=== PATIENT | female | born 1995 | race American Indian/Alaskan Native ===

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

== ENCOUNTER 2017-03-12 22:47 | Inpatient (IN) | payer SELFPAY ==
[2017-03-13 00:17] LABS: Basophils % (Auto) 0.5 % (0.0-1.8); Eosinophils # (Auto) 0.1 K/mm3 (0.0-0.4); Eosinophils % (Auto) 1.2 % (0.0-4.3); Hematocrit 32.2 % (30.3-42.9); Hemoglobin 11.1 gm/dl (10.1-14.3); Lymphocytes # (Auto) 1.8 K/mm3 (1.2-5.4); Lymphocytes % (Auto) 21.8 % (13.4-35.0); Mean Corpuscular HGB Conc 34 % (30-34); Mean Corpuscular Hemoglobin 32 pg (28-32); Mean Corpuscular Volume 92 fl (79-97); Monocytes % (Auto) 11.6 % (0.0-7.3); Platelet Count 240 K/mm3 (140-440); Red Blood Count 3.52 M/mm3 (3.65-5.03); Red Cell Distribution Width 13.5 % (13.2-15.2)
[2017-03-13 00:29] LABS: BUN/Creatinine Ratio 7; Blood Urea Nitrogen 4 mg/dL (7-17); Calcium 8.9 mg/dL (8.4-10.2); Hemolysis Index 0
[2017-03-13 02:29] LABS: Bacteria,Urine 1+ /HPF (Negative); Bilirubin,Urine NEG (Negative); Blood,Urine NEG (Negative); Color,Urine Colorless (Yellow); Nitrite,Urine NEG (Negative); Protein,Urine <15 mg/dL mg/dL (Negative); RBC,Urine < 1.0 /HPF (0.0-6.0); Urobilinogen,Urine < 2.0 mg/dL (<2.0); WBC,Urine < 1.0 /HPF (0.0-6.0)
[2017-03-13] MEDS ORDERED: D50W (25GM) Syringe IV ONE ×3 (02:40→04:46)
--- NOTE | 2017-03-13 02:53 | Emergency Department Report ---
ED General Adult HPI - General Chief complaint: Hyperglycemia Stated complaint: HIGH BLOOD SUGAR Time Seen by Provider: 03/13/17 02:26 Source: patient Mode of arrival: Ambulatory Limitations: No Limitations - History of Present Illness Initial comments: Patient is 21 years old female with no significant past medical history. Patient presented with chief complaint hypoglycemia after patient received 40 units of regular insulin. Patient stated that she checked her blood sugar and found that it was 450, however her uncle use his insulin to help her. Patient stated that her last menstrual period was in August 2016. Patient denied any vaginal bleeding or abdominal pain. - Related Data Allergies Allergy/AdvReac Type Severity Reaction Status Date / Time No Known Allergies Allergy Unverified 07/16/16 13:32 ED Review of Systems ROS: Stated complaint: HIGH BLOOD SUGAR Other details as noted in HPI Comment: All other systems reviewed and negative Constitutional: denies: chills, fever Respiratory: denies: cough, orthopnea, shortness of breath, SOB with exertion Cardiovascular: denies: chest pain, palpitations, dyspnea on exertion Endocrine: increased thirst, increased urine Gastrointestinal: denies: abdominal pain, nausea, vomiting, diarrhea, constipation, hematemesis, melena, hematochezia Genitourinary: denies: hematuria Musculoskeletal: denies: back pain Neurological: denies: headache, weakness, numbness, paresthesias, confusion, abnormal gait ED Past Medical Hx - Past Medical History Previous Medical History?: No - Surgical History Past Surgical History?: No - Social History Smoking Status: Former Smoker Substance Use Type: Marijuana ED Physical Exam - General Limitations: No Limitations General appearance: alert, in no apparent distress - Head Head exam: Present: atraumatic, normocephalic, normal inspection - Eye Eye exam: Present: normal appearance, PERRL - ENT ENT exam: Present: normal exam, normal orophraynx, mucous membranes moist - Neck Neck exam: Present: normal inspection, full ROM. Absent: tenderness, meningismus - Respiratory Respiratory exam: Present: normal lung sounds bilaterally. Absent: respiratory distress, wheezes, rales, rhonchi, stridor, chest wall tenderness, accessory muscle use, decreased breath sounds, prolonged expiratory - Cardiovascular Cardiovascular Exam: Present: regular rate, normal rhythm, normal heart sounds - GI/Abdominal GI/Abdominal exam: Present: soft, normal bowel sounds, organomegaly (gravid uterus). Absent: distended, tenderness, guarding, rebound, rigid, mass, bruit, pulsatile mass - Extremities Exam Extremities exam: Present: normal inspection, full ROM, normal capillary refill. Absent: pedal edema, calf tenderness - Back Exam Back exam: Present: normal inspection, full ROM. Absent: tenderness, CVA tenderness (R), CVA tenderness (L), muscle spasm, paraspinal tenderness, vertebral tenderness - Neurological Exam Neurological exam: Present: alert, oriented X3, CN II-XII intact, normal gait, reflexes normal. Absent: motor sensory deficit - Skin Skin exam: Present: warm, intact, normal color. Absent: cyanosis, diaphoretic, erythema ED Course Vital Signs 03/12/17 03/13/17 03/13/17 23:11 02:15 02:30 Temperature 98.2 F Pulse Rate 85 Respiratory 18 18 Rate Blood Pressure 124/47 111/73 111/73 O2 Sat by Pulse 100 100 100 Oximetry 03/13/17 02:46 Temperature Pulse Rate Respiratory Rate Blood Pressure 112/68 O2 Sat by Pulse 100 Oximetry - Reevaluation(s) Reevaluation #1: 03/13/17 04:48 Discussed with Aminata employment recruiter who is Dr. Zelaya, she advised that patient can be admitted to labor and delivery for monitoring for managing her hypoglycemia. 03/13/17 04:50 ED Medical Decision Making - Lab Data Result diagrams: 03/12/17 23:39 03/12/17 23:39 - Radiology Data Radiology results: report reviewed Referring Physician: SHAE ALVARADO Patient Name: QAMAR BROOKS Date of : 1995 Sex: Female Report Date: 2017-03-13 Report Status: Finalized Findings [facility] [address] [place] [address] Ultrasound Report Signed Patient: QAMAR BROOKS MR#: [id number] : 1995 Acct:[id number] Age/Sex: 21 / F ADM Date: 03/12/17 Loc: ED Attending Dr: Ordering Physician: SHAE ALVARADO Date of Service: 03/13/17 Procedure(s): US OB >= 14 weeks Fetus Accession Number(s): [id number] cc: SHAE ALVARADO FINAL REPORT EXAM: US OB gt; = 14 WEEKS FETUS HISTORY: ABDOMINAL PAIN COMPARISONS: None. FINDINGS: Limited 3rd trimester transabdominal grayscale, color Doppler and M-mode ultrasound Single living intrauterine in cephalic presentation with recorded cardiac activity of 138 beats per minute. Amniotic fluid volume is subjectively normal and amniotic fluid index measures 18 cm. The cervix appears closed and measures approximately 2.6 cm in length. Anterior placenta. No evident previa. Estimated gestational age by ultrasound today is 33 weeks 2 days with delivery date of 04/29/2017. Biparietal diameter is 7.9 cm Head circumference is 29.7 cm Abdominal circumference is 28.9 cm Femoral length is 6.9 cm The brain, spine, and portions of the abdomen to include the umbilical cord insertion are not well seen secondary to advanced gestational age and positioning. IMPRESSION: Single living intrauterine with estimated gestational age of 33 weeks 2 days, as detailed above. Amniotic fluid volume is within normal limits. The cervix appears closed and measures approximately 2.6 cm in length. Consider follow-up as warranted. Transcribed By: MB Dictated By: EDUIN MICHAELS MD Electronically Authenticated By: EDUIN MICHAELS MD Signed Date/Time: 03/13/1730 DD/ TD/TT: 03/13/1730 Critical care attestation.: If time is entered above; I have spent that time in minutes in the direct care of this critically ill patient, excluding procedure time. ED Disposition Clinical Impression: Hypoglycemia, Disposition: -09 OP ADMIT IP TO THIS HOSP Is pt being admited?: Yes Condition: Stable Referrals: EDUIN MORALES MD [Primary Care Provider] - 3-5 Days
--- NOTE | 2017-03-13 04:33 | Ultrasound Report ---
FINAL REPORT EXAM: US OB > = 14 WEEKS FETUS HISTORY: ABDOMINAL PAIN COMPARISONS: None. FINDINGS: Limited 3rd trimester transabdominal grayscale, color Doppler and M-mode ultrasound Single living intrauterine in cephalic presentation with recorded cardiac activity of 138 beats per minute. Amniotic fluid volume is subjectively normal and amniotic fluid index measures 18 cm. The cervix appears closed and measures approximately 2.6 cm in length. Anterior placenta. No evident previa. Estimated gestational age by ultrasound today is 33 weeks 2 days with delivery date of 04/29/2017. Biparietal diameter is 7.9 cm Head circumference is 29.7 cm Abdominal circumference is 28.9 cm Femoral length is 6.9 cm The brain, spine, and portions of the abdomen to include the umbilical cord insertion are not well seen secondary to advanced gestational age and positioning. IMPRESSION: Single living intrauterine with estimated gestational age of 33 weeks 2 days, as detailed above. Amniotic fluid volume is within normal limits. The cervix appears closed and measures approximately 2.6 cm in length. Consider follow-up as warranted.
[2017-03-13] MEDS ORDERED: D10W 1,000 ML IV SCH (05:00)
[2017-03-13] MEDS ORDERED: DEEP SEA NS PRN (05:46)
[2017-03-13] MEDS ORDERED: TYLENOL PO PRN (05:46)
[2017-03-13] MEDS ORDERED: ZOFRAN IV PRN (05:46)
[2017-03-13] MEDS ORDERED: COLACE PO PRN (05:46)
[2017-03-13 06:08] LABS: Amphetamine Screen,Urine PRESUMPTIVE NEGATIVE; Benzodiazepines Screen,Urine PRESUMPTIVE NEGATIVE; Cocaine Screen,Urine PRESUMPTIVE NEGATIVE; Methadone Screen,Urine PRESUMPTIVE NEGATIVE; Opiate Screen,Urine PRESUMPTIVE NEGATIVE
[2017-03-13 06:30] LABS: Cannabinoid Screen,Urine PRESUMPTIVE POSITIVE
[2017-03-13 07:31] LABS: Rubella IgG Antibody Immune (Immune)
[2017-03-13 08:57] VITALS: BP 115/56
--- NOTE | 2017-03-13 09:13 | Progress Note ---
Assessment and Plan - Patient Problems (1) 33 weeks gestation of Current Visit: Yes Status: Acute (2) No care in current Current Visit: Yes Status: Acute Qualifiers: Trimester: third trimester Qualified Code(s): O09.33 - Supervision of with insufficient care, third trimester Plan to address problem: Will allow home, instructed not to take insulin. Make an appointment immediately with an grinder set up operator thread tool for care (3) Hypoglycemia Current Visit: Yes Status: Resolved Subjective - Subjective Date of service: 03/13/17 Principal diagnosis: IUP@33 weeks, no care Interval history: Feels better, states she did not know she was , states her uncle checked her BS b/c she was very thirst and urinating frequently. Reportedly her BS was 475 and she received 50u regular insulin by her uncle at ~930 last pm. Patient reports: movement normal, no new complaints, no vaginal bleeding, no contractions Objective - Vital Signs Vital Signs: Vital Signs - 12hr 03/12/17 03/13/17 03/13/17 23:11 02:15 02:30 Temperature 98.2 F Pulse Rate 85 Respiratory 18 18 Rate Blood Pressure 124/47 111/73 111/73 O2 Sat by Pulse 100 100 100 Oximetry 03/13/17 03/13/17 03/13/17 02:46 06:29 06:33 Temperature 97.2 F L Pulse Rate 86 Respiratory 16 Rate Blood Pressure 112/68 107/73 O2 Sat by Pulse 100 Oximetry 03/13/17 08:59 Temperature Pulse Rate 72 Respiratory Rate Blood Pressure 115/56 O2 Sat by Pulse Oximetry - Exam Lungs: Normal air movement Abdomen: Present: normal appearance, soft Vulva: both: normal Cervical Dilatation: 0 (per Fredo Edwards CNM) Cervical Effacement Percentage: 0 station: -3 Uterine Contraction Pattern: Absent Extremities: normal - Labs Labs: Abnormal Labs 03/12/17 03/12/17 03/13/17 23:39 23:39 00:53 RBC 3.52 L [place] % (Auto) 11.6 H [place] # 1.0 H POC ABG pO2 205 H Sodium 135 L BUN 4 L Creatinine 0.6 L POC Glucose HCG, Quant Ur Specific [place] 03/13/17 03/13/17 03/13/17 02:13 03:22 06:47 RBC [place] % (Auto) [place] # POC ABG pO2 Sodium BUN Creatinine POC Glucose 53 L HCG, Quant 12898 H Ur Specific [place] 1.002 L Laboratory Results - last 24 hr 03/12/17 03/12/17 03/12/17 23:09 23:39 23:39 WBC 8.5 RBC 3.52 L Hgb 11.1 Hct 32.2 MCV 92 MCH 32 MCHC 34 RDW 13.5 Plt Count 240 Lymph % (Auto) 21.8 [place] % (Auto) 11.6 H Eos % (Auto) 1.2 Baso % (Auto) 0.5 Lymph # 1.8 [place] # 1.0 H Eos # 0.1 Baso # 0.0 Seg Neutrophils % 64.9 Seg Neutrophils # 5.5 Sickle Cell Screen POC ABG pH POC ABG pCO2 POC ABG pO2 POC ABG HCO3 POC ABG Total CO2 POC ABG O2 Sat POC ABG Base Excess FiO2 Sodium 135 L Potassium 4.2 Chloride 98.6 Carbon Dioxide 23 Anion Gap 18 BUN 4 L Creatinine 0.6 L Estimated GFR > 60 BUN/Creatinine Ratio 7 Glucose 88 POC Glucose 81 Hemoglobin A1c Calcium 8.9 HCG, Qual HCG, Quant Urine Color Urine Turbidity Urine pH Ur Specific [place] Urine Protein Urine Glucose (UA) Urine Ketones Urine Blood Urine Nitrite Urine Bilirubin Urine Urobilinogen Ur Leukocyte Esterase Urine WBC (Auto) Urine RBC (Auto) U Epithel Cells (Auto) Urine Bacteria (Auto) Urine Opiates Screen Urine Methadone Screen Ur Barbiturates Screen Ur Phencyclidine Scrn Ur Amphetamines Screen U Benzodiazepines Scrn Urine Cocaine Screen U Marijuana (THC) Screen Drugs of Abuse Note HIV 1&2 Antibody Rapid HIV P24 Antigen Rubella IgG Antibody Blood Type Antibody Screen 03/12/17 03/12/17 03/13/17 23:39 23:47 00:53 WBC RBC Hgb Hct MCV MCH MCHC RDW Plt Count Lymph % (Auto) [place] % (Auto) Eos % (Auto) Baso % (Auto) Lymph # [place] # Eos # Baso # Seg Neutrophils % Seg Neutrophils # Sickle Cell Screen POC ABG pH 7.417 POC ABG pCO2 41.6 POC ABG pO2 205 H POC ABG HCO3 26.8 POC ABG Total CO2 28 POC ABG O2 Sat 100 POC ABG Base Excess 2 FiO2 21 Sodium Potassium Chloride Carbon Dioxide Anion Gap BUN Creatinine Estimated GFR BUN/Creatinine Ratio Glucose POC Glucose 95 Hemoglobin A1c Calcium HCG, Qual Positive HCG, Quant Urine Color Urine Turbidity Urine pH Ur Specific [place] Urine Protein Urine Glucose (UA) Urine Ketones Urine Blood Urine Nitrite Urine Bilirubin Urine Urobilinogen Ur Leukocyte Esterase Urine WBC (Auto) Urine RBC (Auto) U Epithel Cells (Auto) Urine Bacteria (Auto) Urine Opiates Screen Urine Methadone Screen Ur Barbiturates Screen Ur Phencyclidine Scrn Ur Amphetamines Screen U Benzodiazepines Scrn Urine Cocaine Screen U Marijuana (THC) Screen Drugs of Abuse Note HIV 1&2 Antibody Rapid HIV P24 Antigen Rubella IgG Antibody Blood Type Antibody Screen 03/13/17 03/13/17 03/13/17 01:56 02:13 02:50 WBC RBC Hgb Hct MCV MCH MCHC RDW Plt Count Lymph % (Auto) [place] % (Auto) Eos % (Auto) Baso % (Auto) Lymph # [place] # Eos # Baso # Seg Neutrophils % Seg Neutrophils # Sickle Cell Screen POC ABG pH POC ABG pCO2 POC ABG pO2 POC ABG HCO3 POC ABG Total CO2 POC ABG O2 Sat POC ABG Base Excess FiO2 Sodium Potassium Chloride Carbon Dioxide Anion Gap BUN Creatinine Estimated GFR BUN/Creatinine Ratio Glucose POC Glucose 79 Hemoglobin A1c Calcium HCG, Qual HCG, Quant Urine Color Colorless Urine Turbidity Clear Urine pH 7.0 Ur Specific [place] 1.002 L Urine Protein <15 mg/dl Urine Glucose (UA) Neg Urine Ketones Neg Urine Blood Neg Urine Nitrite Neg Urine Bilirubin Neg Urine Urobilinogen < 2.0 Ur Leukocyte Esterase Neg Urine WBC (Auto) < 1.0 Urine RBC (Auto) < 1.0 U Epithel Cells (Auto) < 1.0 Urine Bacteria (Auto) 1+ Urine Opiates Screen Presumptive negative Urine Methadone Screen Presumptive negative Ur Barbiturates Screen Presumptive negative Ur Phencyclidine Scrn Presumptive negative Ur Amphetamines Screen Presumptive negative U Benzodiazepines Scrn Presumptive negative Urine Cocaine Screen Presumptive negative U Marijuana (THC) Screen Presumptive positive Drugs of Abuse Note Disclamer HIV 1&2 Antibody Rapid HIV P24 Antigen Rubella IgG Antibody Blood Type Antibody Screen 03/13/17 03/13/17 03/13/17 03:22 04:45 05:48 WBC RBC Hgb Hct MCV MCH MCHC RDW Plt Count Lymph % (Auto) [place] % (Auto) Eos % (Auto) Baso % (Auto) Lymph # [place] # Eos # Baso # Seg Neutrophils % Seg Neutrophils # Sickle Cell Screen POC ABG pH POC ABG pCO2 POC ABG pO2 POC ABG HCO3 POC ABG Total CO2 POC ABG O2 Sat POC ABG Base Excess FiO2 Sodium Potassium Chloride Carbon Dioxide Anion Gap BUN Creatinine Estimated GFR BUN/Creatinine Ratio Glucose POC Glucose 87 Hemoglobin A1c Calcium HCG, Qual HCG, Quant 30982 H Urine Color Urine Turbidity Urine pH Ur Specific [place] Urine Protein Urine Glucose (UA) Urine Ketones Urine Blood Urine Nitrite Urine Bilirubin Urine Urobilinogen Ur Leukocyte Esterase Urine WBC (Auto) Urine RBC (Auto) U Epithel Cells (Auto) Urine Bacteria (Auto) Urine Opiates Screen Urine Methadone Screen Ur Barbiturates Screen Ur Phencyclidine Scrn Ur Amphetamines Screen U Benzodiazepines Scrn Urine Cocaine Screen U Marijuana (THC) Screen Drugs of Abuse Note HIV 1&2 Antibody Rapid HIV P24 Antigen Rubella IgG Antibody Immune Blood Type Antibody Screen 03/13/17 03/13/17 03/13/17 05:50 06:10 06:10 WBC RBC Hgb Hct MCV MCH MCHC RDW Plt Count Lymph % (Auto) [place] % (Auto) Eos % (Auto) Baso % (Auto) Lymph # [place] # Eos # Baso # Seg Neutrophils % Seg Neutrophils # Sickle Cell Screen Negative POC ABG pH POC ABG pCO2 POC ABG pO2 POC ABG HCO3 POC ABG Total CO2 POC ABG O2 Sat POC ABG Base Excess FiO2 Sodium Potassium Chloride Carbon Dioxide Anion Gap BUN Creatinine Estimated GFR BUN/Creatinine Ratio Glucose POC Glucose Hemoglobin A1c 4.8 Calcium HCG, Qual HCG, Quant Urine Color Urine Turbidity Urine pH Ur Specific [place] Urine Protein Urine Glucose (UA) Urine Ketones Urine Blood Urine Nitrite Urine Bilirubin Urine Urobilinogen Ur Leukocyte Esterase Urine WBC (Auto) Urine RBC (Auto) U Epithel Cells (Auto) Urine Bacteria (Auto) Urine Opiates Screen Urine Methadone Screen Ur Barbiturates Screen Ur Phencyclidine Scrn Ur Amphetamines Screen U Benzodiazepines Scrn Urine Cocaine Screen U Marijuana (THC) Screen Drugs of Abuse Note HIV 1&2 Antibody Rapid N HIV P24 Antigen N Rubella IgG Antibody Blood Type Antibody Screen 03/13/17 03/13/17 06:10 06:47 WBC RBC Hgb Hct MCV MCH MCHC RDW Plt Count Lymph % (Auto) [place] % (Auto) Eos % (Auto) Baso % (Auto) Lymph # [place] # Eos # Baso # Seg Neutrophils % Seg Neutrophils # Sickle Cell Screen POC ABG pH POC ABG pCO2 POC ABG pO2 POC ABG HCO3 POC ABG Total CO2 POC ABG O2 Sat POC ABG Base Excess FiO2 Sodium Potassium Chloride Carbon Dioxide Anion Gap BUN Creatinine Estimated GFR BUN/Creatinine Ratio Glucose POC Glucose 53 L Hemoglobin A1c Calcium HCG, Qual HCG, Quant Urine Color Urine Turbidity Urine pH Ur Specific [place] Urine Protein Urine Glucose (UA) Urine Ketones Urine Blood Urine Nitrite Urine Bilirubin Urine Urobilinogen Ur Leukocyte Esterase Urine WBC (Auto) Urine RBC (Auto) U Epithel Cells (Auto) Urine Bacteria (Auto) Urine Opiates Screen Urine Methadone Screen Ur Barbiturates Screen Ur Phencyclidine Scrn Ur Amphetamines Screen U Benzodiazepines Scrn Urine Cocaine Screen U Marijuana (THC) Screen Drugs of Abuse Note HIV 1&2 Antibody Rapid HIV P24 Antigen Rubella IgG Antibody Blood Type O POSITIVE Antibody Screen Negative US report reviewed - Results US- obstetric: report reviewed
[2017-03-13] MEDS ORDERED: PRENATAL VITAMIN PO SCH (10:00)
[2017-03-13 10:52] LABS: Hepatitis C Virus Antibody Non-Reactive (NonReactive)
== END 2017-03-13 10:49 | disposition home or self-care (01) | DRG 781 ==
LOC: ED 22:47 → LD 03-13 04:52
PROVIDERS: ADMIT Obstetrics & Gynecology; ATTEND Obstetrics & Gynecology
DX: O99.810 Abnormal glucose complicating pregnancy (principal); Z3A.33 33 weeks gestation of pregnancy; E16.2 Hypoglycemia, unspecified; Z87.891 Personal history of nicotine dependence; O09.33 Supervision of pregnancy with insufficient antenatal care, third trimester
CPT/HCPCS: 36415; 76805; 80048; 80307; 81001; 82803; 82962; 83036; 84702; 84703; 85025; 85660; 86592; 86706; 86762; 86803; 86850; 86900; 86901; 87806

== ENCOUNTER 2017-03-23 23:33 | Inpatient (IN) | payer OTHER ==
[2017-03-23] MEDS ORDERED: POLYCILLIN/NS 2 GM/100 ML 2 GM/100 ML BAG IV ONE (23:39)
[2017-03-23] MEDS ORDERED: PITOCin/NS 20 UNIT/1000ML DRIP 20 UNITS/1,000 ML BAG IV SCH (23:45)
[2017-03-23] MEDS ORDERED: LACTATED RINGERS 1,000 ML IV ONE (23:53)
[2017-03-24] MEDS ORDERED: MINERAL OIL ONE (00:13)
[2017-03-24] MEDS ORDERED: MINERAL OIL TOPICAL LIGHT TP PRN (00:15)
[2017-03-24 00:19] LABS: Hematocrit 35.9 % (30.3-42.9); Hemoglobin 11.8 gm/dl (10.1-14.3); Mean Corpuscular HGB Conc 33 % (30-34); Mean Corpuscular Hemoglobin 30 pg (28-32); Mean Corpuscular Volume 91 fl (79-97); Platelet Count 234 K/mm3 (140-440); Red Blood Count 3.94 M/mm3 (3.65-5.03); Red Cell Distribution Width 13.7 % (13.2-15.2)
[2017-03-24] MEDS ORDERED: POLYCILLIN/NS 2 GM/100 ML 2 GM/100 ML BAG IV ONE (01:00)
[2017-03-24] MEDS ORDERED: MINERAL OIL PO PRN (01:05)
[2017-03-24] MEDS ORDERED: TORADOL IV ONE (01:09)
--- NOTE | 2017-03-24 01:27 | History and Physical Report ---
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: denies: chlamydia, gonorrhea, hepatitis B, hepatitis C, herpes, HIV , syphilis - Obstetrical History Expected Date of Delivery: 04/29/17 Actual Gestation: 34 Week(s) 6 Day(s) : 1 Medications and Allergies Allergies Allergy/AdvReac Type Severity Reaction Status Date / Time No Known Allergies Allergy Verified 03/23/17 23:51 Home Medications Medication Instructions Recorded Confirmed Last Taken Type No Known Home Medications [No 03/23/17 03/23/17 Unknown History Reported Home Medications] Active Meds: Active Medications Ampicillin Sodium (Polycillin/Ns 2 Gm/100 Ml) 2 gm in 100 mls @ 100 mls/hr IV ONCE ONE Stop: 03/24/17 01:59 Last Admin: 03/24/17 00:17 Dose: 100 mls/hr Oxytocin/Sodium Chloride (Pitocin/Ns 20 Unit/1000ml Drip) 20 units in 1,000 mls @ 0 mls/hr IV DIRECT ABDIRASHID PRN Reason: As Directed Last Admin: 03/24/17 00:48 Dose: 999 mls/hr Lactated Ringer's (Lactated Ringers) 1,000 mls @ 125 mls/hr IV DIRECT ABDIRASHID Mineral Oil (Mineral Oil Topical Light) 1 applic TP Q8H PRN PRN Reason: Dry Skin Mineral Oil (Mineral Oil) 30 ml PO QHS PRN PRN Reason: Constipation Review of Systems All systems: negative - Vital Signs Vital signs: Vital Signs Pulse BP 66 116/53 03/23/17 23:58 03/23/17 23:58 Temp Pulse Resp BP Pulse Ox 97.5 F L 60 24 122/71 03/24/17 00:00 03/24/17 01:24 03/24/17 00:00 03/24/17 01:24 - Physical Exam Breasts: Positive: deferred Cardiovascular: Regular rate Lungs: Positive: Normal air movement Abdomen: Positive: normal appearance Genitourinary (Female): Positive: other (folliculitis (L) labia) Anus/Rectum: Positive: normal perianal skin Results Result Diagrams: 03/23/17 Unknown Abnormal lab results 03/23/17 Range/Units Unknown WBC 15.8 H (4.5-11.0) K/mm3 All other labs normal. Assessment and Plan - Patient Problems (1) 34 weeks gestation of Current Visit: Yes Status: Acute (2) Active labor at term Current Visit: Yes Status: Acute (3) No care in current Current Visit: No Status: Acute Qualifiers: Trimester: third trimester Qualified Code(s): O09.33 - Supervision of with insufficient care, third trimester
--- NOTE | 2017-03-24 01:30 | Procedure Note ---
OB Delivery Note - Delivery Date of Delivery: 03/24/17 Surgeon: FANTA PAULINO Estimated blood loss: 200cc - Vaginal Delivery position: OA Intrapartum events: no care, labor-<37 weeks Delivery induction: none Delivery augmentation: rupture of membranes Delivery monitor: external FHT, external uterine Route of delivery: Delivery placenta: spontaneous (intact) Delivery laceration: other ((B) labial, hemostatic, no repair required) Anesthesia: none - A at 1 minute: 8 at 5 minutes: 9 Gender: Male (5#10oz)
[2017-03-24] MEDS ORDERED: LACTATED RINGERS 1,000 ML IV SCH (02:00)
[2017-03-24] MEDS ORDERED: DULCOLAX PR PRN (02:05)
[2017-03-24] MEDS ORDERED: TORADOL IV PRN (02:05)
[2017-03-24] MEDS ORDERED: ZOFRAN IV PRN (02:05)
[2017-03-24] MEDS ORDERED: PHENERGAN PR PRN (02:05)
[2017-03-24] MEDS ORDERED: LANSINOH TP PRN (02:05)
[2017-03-24] MEDS ORDERED: TYLENOL PO PRN (02:05)
[2017-03-24] MEDS ORDERED: SODIUM CHLORIDE FLUSH SYRINGE 10 ML IV NR (02:05)
[2017-03-24] MEDS ORDERED: BENADRYL PO PRN (02:05)
[2017-03-24] MEDS ORDERED: MILK OF MAGNESIA PO PRN (02:05)
[2017-03-24] MEDS ORDERED: PITOCin/NS 20 UNIT/1000ML DRIP 20 UNITS/1,000 ML BAG IV SCH (02:05)
[2017-03-24] MEDS ORDERED: TUCKS PAD TP PRN (02:05)
[2017-03-24] MEDS ORDERED: PHENERGAN PO PRN (02:05)
[2017-03-24 02:29] LABS: Amphetamine Screen,Urine PRESUMPTIVE NEGATIVE; Benzodiazepines Screen,Urine PRESUMPTIVE NEGATIVE; Cocaine Screen,Urine PRESUMPTIVE NEGATIVE; Methadone Screen,Urine PRESUMPTIVE NEGATIVE; Opiate Screen,Urine PRESUMPTIVE NEGATIVE
[2017-03-24 02:44] LABS: Amorphous Crystals,Urine 1+; Bilirubin,Urine NEG (Negative); Blood,Urine NEG (Negative); Color,Urine Yellow (Yellow); Mucus,Urine 2+ /HPF; Nitrite,Urine NEG (Negative); Urobilinogen,Urine < 2.0 mg/dL (<2.0)
[2017-03-24 02:46] LABS: Cannabinoid Screen,Urine PRESUMPTIVE POSITIVE
[2017-03-24] MEDS: MOTRIN PO SCH ×3 (05:19→17:50)
[2017-03-24] MEDS ORDERED: Fluarix Quad 2017-2018(36 MOS+ IM ONE (12:00)
[2017-03-24 14:13] LABS: Hematocrit 36.3 % (30.3-42.9); Hemoglobin 11.8 gm/dl (10.1-14.3)
[2017-03-25] MEDS: MOTRIN PO SCH ×4 (00:38→23:49)
[2017-03-25] MEDS ORDERED: BOOSTRIX IM ONE (06:00)
--- NOTE | 2017-03-25 07:16 | Progress Note ---
Assessment and Plan - Patient Problems (1) Spontaneous vaginal delivery Onset Date: ~03/24/17 Current Visit: Yes Status: Acute Plan to address problem: pt resting quietly No c/o voiced Baby sleeping in bed with mom. VSS FF below umb Lochia scant perineum intact H&H stable No s/sx of anemia Doing well s/p del No PNC P: continue pathway Advance as tolerated. Subjective - Subjective Date of service: 03/25/17 (no c/o voiced) Patient reports: appetite normal, voiding normally, pain well controlled, ambulating normally [place]: doing well Objective - Vital Signs Latest vital signs: Vital Signs Temp Pulse Resp BP Pulse Ox 03/25/17 01:25 98.1 F 82 18 115/63 98 03/24/17 16:51 98.5 F 60 18 114/75 03/24/17 12:33 97.5 F L 58 L 18 133/80 03/24/17 08:20 98.3 F 57 L 18 108/66 Intake and Output 03/24/17 03/25/17 03/25/17 22:59 06:59 14:59 Intake Total 600 240 Output Total 900 Balance -300 240 Intake: Oral 600 240 Output: Urine 900 Void 900 Other: Total, Intake Amount 240 240 Total, Output Amount 900 # Voids Void 1 - Exam Breasts: Present: normal Lungs: Present: Clear to auscultation, Normal air movement Abdomen: Present: normal appearance, soft, normal bowel sounds Vulva: both: normal Uterus: Present: normal, fundal height below umbilicus Extremities: Present: normal Incision: Present: normal
--- NOTE | 2017-03-25 08:34 | Event Note ---
Date: 03/13/17 This pt was not admitted to labor and delivey or the antipartum unit . She is to be evaluated in ob triage and was then d/c home same day as she was stable.
[2017-03-26] MEDS: MOTRIN PO SCH (05:35)
[2017-03-26] MEDS ORDERED: DEPO-PROVERA (CONTRACEPTION) IM ONE (05:45)
--- NOTE | 2017-03-26 07:41 | Discharge Summary ---
Providers - Providers Date of Admission: 03/23/17 23:33 Date of discharge: 03/26/17 (pt desires d/c home) Attending physician: FANTA PAULINO 03/24/17 02:05 Consult to Case Management [CONS] Routine Services Needed at Discharge: [employer] Consult to Solar Energy Specialist [CONS] Routine Reason For Exam: assistance with , SNS Primary care physician: EDUIN MORALES Hospitalization Reason for admission: labor, no care Condition: Good Procedures: vaginal delivery Hospital course: uncomplicated vaginal delivery and course Disposition: [place]-01 TO HOME OR SELFCARE - Discharge Diagnoses (1) Spontaneous vaginal delivery Status: Acute Core Measure Documentation - Palliative Care Palliative Care/ Comfort Measures: Not Applicable - Core Measures Any of the following diagnoses?: none Exam - Constitutional Vitals: Temp Pulse Resp BP Pulse Ox 98.8 F 88 20 128/93 99 03/26/17 00:02 03/26/17 00:02 03/26/17 00:02 03/26/17 00:02 03/26/17 00:02 General appearance: Present: no acute distress, well-nourished - EENT Eyes: Present: PERRL ENT: hearing intact, clear oral mucosa - Neck Neck: Present: supple, normal ROM - Respiratory Respiratory effort: normal Respiratory: bilateral: CTA - Cardiovascular Heart Sounds: Present: S1 & S2. Absent: rub, click - Extremities Extremities: pulses symmetrical, No edema - Abdominal General gastrointestinal: Present: soft, non-tender Female genitourinary: Present: normal - Integumentary Integumentary: Present: clear, warm, dry - Musculoskeletal Musculoskeletal: gait normal, strength equal bilaterally - Psychiatric Psychiatric: appropriate mood/affect, intact judgment & insight - Neurologic Neurologic: CNII-XII intact, moves all extremities - Additional findings Additional findings: Fundus firm, lochia scant Plan Activity: no restrictions Diet: regular Follow up with: EDUIN MORALES MD [Primary Care Provider] - 7 Days LUCY TANNER CNM [Advanced Practice Nurse] - 04/24/17 (Congratulations! ! Please call [phone] to schedule your visit in 4 weeks. Call for any questions or concerns.)
[2017-03-26 08:21] VITALS: BP 103/58
[2017-03-26] MEDS ORDERED: DEPO-PROVERA (CONTRACEPTION) IM NR (14:00)
== END 2017-03-26 13:30 | disposition home or self-care (01) | DRG 775 ==
LOC: LD 23:33 → OB 03-24 02:03
PROVIDERS: ADMIT Obstetrics & Gynecology; ATTEND Obstetrics & Gynecology
PROC: 10E0XZZ Delivery of Products of Conception, External Approach (ICD-10-PCS; principal; 2017-03-24)
PROC: 3E0234Z Introduction of Serum, Toxoid and Vaccine into Muscle, Percutaneous Approach (ICD-10-PCS; 2017-03-24)
DX: O60.14X0 Preterm labor third trimester with preterm delivery third trimester, not applicable or unspecified (principal); O70.0 First degree perineal laceration during delivery; Z3A.34 34 weeks gestation of pregnancy; Z37.0 Single live birth; Z23 Encounter for immunization
CPT/HCPCS: 36415; 80307; 81001; 85014; 85018; 85027; 86592; 86706; 86803; 86850; 86900; 86901; 87806; 88307; 90471; 90686; 90715; 99211; A6250; G0463; J0290; J1050